=== PATIENT | male | born 1985 | race Caucasian/White ===

== ENCOUNTER 2021-08-19 15:25 | Emergency (ER) | payer OTHER, SELFPAY ==
[2021-08-19] MEDS ORDERED: predniSONE 20 MG TAB ONE (15:44)
[2021-08-19] MEDS ORDERED: Neomycin-Polymyxin-Hc 7.5 ML BOT ONE (15:44)
[2021-08-19] MEDS ORDERED: Sulfameth/Trimethoprim DS 800-160mg TAB ONE (15:44)
[2021-08-19] MEDS ORDERED: NEOMYCIN-POLYMYXIN-HC EAR SUSP 200 DROP/10 ML BOT ONE (15:46)
== END 2021-08-19 15:57 | disposition home or self-care (01) ==
LOC: BURERS 15:25
DX: H92.01 Otalgia, right ear (principal)
CPT/HCPCS: 99282; J7512